=== PATIENT | female | born 1985 | race Caucasian/White ===

== ENCOUNTER 2018-03-15 00:47 | Emergency (ER) | payer OTHER ==
[~2018-03-15] VITALS: Ht 162.6 cm; Wt 113.4 kg
[2018-03-15] MEDS ORDERED: METFORMIN HCL500 MG (01:01)
[2018-03-15] MEDS ORDERED: SKELAXIN (01:02)
[2018-03-15 02:41] LABS: URINE BILIRUBIN NEGATIVE (Negative); URINE BLOOD 1+ (Negative); URINE CLARITY CLEAR; URINE COLOR YELLOW; URINE GLUCOSE-RANDOM NEGATIVE (Negative); URINE KETONES NEGATIVE (Negative); URINE LEUKOCYTES-REFLEX NEGATIVE (Negative); URINE NITRITE-REFLEX NEGATIVE (Negative); URINE PROTEIN 2+ (Negative); URINE SPECIFIC GRAVITY >= 1.030 (1.005-1.030)
[2018-03-15 02:49] LABS: CASTS None Seen /LPF (None Seen); MUCUS 0-3 Light strn/LPF (None Seen); SQUAMOUS >10 Many /LPF (0-3)
[2018-03-15 02:50] LABS: URINE WBC-REFLEX 0-5 Rare /HPF (0-5)
[2018-03-15 02:51] LABS: BACTERIA-REFLEX >30 Many /HPF (None Seen); CALCIUM OXALATE 0-3 Few /LPF (None Seen); URINE RBC 3-10 Few /HPF (0-2)
[2018-03-15] MEDS ORDERED: ZOFRAN ODT4 MG PO (03:56)
[2018-03-15] MEDS ORDERED: NORCO 7.5-3251 EACH PO (03:56)
[2018-03-15] MEDS ORDERED: FLOMAX0.4 MG PO (03:56)
[2018-03-15 04:25] VITALS: BP 108/64
== END 2018-03-15 04:25 | disposition home or self-care (01) ==
LOC: M.ERS 00:47
PROVIDERS: Emergency Medicine
DX: N20.0 Calculus of kidney (principal); R11.2 Nausea with vomiting, unspecified; E28.2 Polycystic ovarian syndrome